=== PATIENT | male | born 1980 | race African-American/Black ===

== ENCOUNTER 2018-01-02 11:27 | Emergency (ER) | payer BC ==
[2018-01-02 12:30] LABS: BILIRUBIN,URINE NEGATIVE (NEG); CLARITY,URINE CLOUDY; COLOR,URINE YELLOW; GLUCOSE,URINE NEGATIVE (NEG); NITRITE,URINE NEGATIVE (NEG); PH,URINE 7.5; PROTEIN,URINE NEGATIVE (NEG-TRACE); UROBILINOGEN,URINE 0.2 mg/dL (0.2 mg/dL)
[2018-01-02 12:37] LABS: BACTERIA,URINE 0 /HPF (0-FEW); RBC,URINE 0 /HPF (0-2); SQUAMOUS EPITHELIAL CELL,UR OCC /LPF; WBC,URINE 0 /HPF (0-4)
[2018-01-02] MEDS: NAPROXEN 500 MG TABLET PO (13:02)
[2018-01-02] MEDS: HYDROcodone/APAP 5/325MG 1 TAB TABLET PO (13:02)
[2018-01-02] MEDS: diazePAM 5 MG TABLET PO (13:03)
== END 2018-01-02 14:40 | disposition home or self-care (01) ==
LOC: ER 11:27
DX: S32.009A Unspecified fracture of unspecified lumbar vertebra, initial encounter for closed fracture (principal); W01.0XXA Fall on same level from slipping, tripping and stumbling without subsequent striking against object, initial encounter; Y93.01 Activity, walking, marching and hiking; Y92.89 Other specified places as the place of occurrence of the external cause; Y99.8 Other external cause status
CPT/HCPCS: 72131; 81001; 99285-25

== ENCOUNTER 2018-05-21 13:14 | Emergency (ER) | payer BC ==
[~2018-05-21] VITALS: Ht 165.1 cm; Wt 65.8 kg
[~2018-05-21 13:14] MED LIST: DIAZ5TAB PO; HYDR-971 PO; METH4TAB2 PO; NAPR500T8 PO
[2018-05-21 13:35] VITALS: BP 132/68
[2018-05-21] MEDS ORDERED: HYDROcodone/APAP 5/325MG 1 TAB TABLET PO ONE (14:15)
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
[2018-05-21] MEDS ORDERED: HYDR-971 PO (14:52)
== END 2018-05-21 15:52 | disposition home or self-care (01) ==
LOC: ER 13:14
DX: S52.572A Other intraarticular fracture of lower end of left radius, initial encounter for closed fracture (principal); V19.9XXA Pedal cyclist (driver) (passenger) injured in unspecified traffic accident, initial encounter; Y93.89 Activity, other specified; Y92.410 Unspecified street and highway as the place of occurrence of the external cause; Y99.8 Other external cause status
CPT/HCPCS: 29125; 73110; 99284

== ENCOUNTER 2018-05-22 23:01 | Emergency (ER) | payer BC ==
[~2018-05-22] VITALS: Ht 162.6 cm; Wt 65.8 kg
[2018-05-23] MEDS ORDERED: oxyCODONE/APAP 5/325 1 TAB TABLET PO ONE (01:00)
[2018-05-23] MEDS ORDERED: OXYC-323 PO (02:27)
--- NOTE | 2018-05-23 02:27 | PHYS DOC ---
Past Medical History Past Medical History: No Pertinent History Past Surgical History: No Surgical History Alcohol Use: None Drug Use: None Adult General Chief Complaint Chief Complaint: WRIST PAIN HPI HPI Patient is a 37 year old [f__sex] who presents with [] Review of Systems Review of Systems Constitutional: Denies fever or chills [] Eyes: Denies change in visual acuity, redness, or eye pain [] HENT: Denies nasal congestion or sore throat [] Respiratory: Denies cough or shortness of breath [] Cardiovascular: No additional information not addressed in HPI [] GI: Denies abdominal pain, nausea, vomiting, bloody stools or diarrhea [] : Denies dysuria or hematuria [] Musculoskeletal: Denies back pain or joint pain [] Integument: Denies rash or skin lesions [] Neurologic: Denies headache, focal weakness or sensory changes [] Endocrine: Denies polyuria or polydipsia [] All other systems were reviewed and found to be within normal limits, except as documented in this note. Current Medications Current Medications Current Medications Medications (Trade) Dose Ordered Sig/Micha Start Time Stop Time Status Last Admin Dose Admin Fentanyl Citrate (Fentanyl 2ml Vial) 75 mcg 1X ONCE 05/23/18 02:30 05/23/18 02:31 UNV Oxycodone/ Acetaminophen (Percocet 5/325) 2 tab 1X ONCE 05/23/18 01:00 05/23/18 01:01 DC 05/23/18 01:06 2 TAB Allergies Allergies Allergies Coded Allergies Type Severity Reaction Last Updated Verified No Known Drug Allergies 01/02/18 No Physical Exam Physical Exam Constitutional: Well developed, well nourished, no acute distress, non-toxic appearance. [] HENT: Normocephalic, atraumatic, bilateral external ears normal, oropharynx moist, no oral exudates, nose normal. [] Eyes: PERRLA, EOMI, conjunctiva normal, no discharge. [] Neck: Normal range of motion, no tenderness, supple, no stridor. [] Cardiovascular:Heart rate regular rhythm, no murmur [] Lungs & Thorax: Bilateral breath sounds clear to auscultation [] Abdomen: Bowel sounds normal, soft, no tenderness, no masses, no pulsatile masses. [] Skin: Warm, dry, no erythema, no rash. [] Back: No tenderness, no CVA tenderness. [] Extremities: No tenderness, no cyanosis, no clubbing, ROM intact, no edema. [] Neurologic: Alert and oriented X 3, normal motor function, normal sensory function, no focal deficits noted. [] Psychologic: Affect normal, judgement normal, mood normal. [] Current Patient Data Vital Signs Vital Signs Date Time Temp Pulse Resp B/P (MAP) Pulse Ox O2 Delivery O2 Flow Rate FiO2 05/23/18 01:06 Room Air 05/23/18 00:27 97.7 72 18 170/82 (111) 99 97.7 EKG EKG [] Radiology/Procedures Radiology/Procedures [] Course & Med Decision Making Course & Med Decision Making Pertinent Labs and Imaging studies reviewed. (See chart for details) [] Dragon Disclaimer Dragon Disclaimer This electronic medical record was generated, in whole or in part, using a voice recognition dictation system. Departure Departure Impression: Primary Impression: Distal radius fracture, left Disposition: 01 HOME, SELF-CARE Condition: STABLE Referrals: NO PCP (PCP) SAMEERA EDWARDS MD Patient Instructions: Cast or Splint Care, [id number], Wrist Fracture Scripts Oxycodone/Apap 5-325 (PERCOCET 5-325 MG TABLET) 1 Each Tablet 1 TAB PO PRN Q6HRS PRN for PAIN, #14 TAB 0 Refills Prov: SEMAJ BARLOW DO 05/23/18 Problem Qualifiers Primary Impression: Distal radius fracture, left Encounter type: initial encounter Fracture type: closed Fracture morphology : Colles' Qualified Codes: S52.532A - Colles' fracture of left radius, initial encounter for closed fracture SEMAJ BARLOW DO May 23, 2018 02:27
[2018-05-23 02:45] VITALS: BP 154/77
[2018-05-23] MEDS ORDERED: fentaNYL PF VIAL 100 MCG/2 ML VIAL IM ONE (03:00)
--- NOTE | 2018-05-23 04:21 | RAD ---
Examination: 2 views of the left forearm HISTORY: History of pain, swelling, fracture COMPARISON: Chest radiograph from 05/21/2018 Findings/ impression: Comminuted mild displaced fracture of the distal radius with intra-articular extension. The alignment of the proximal radius and ulna grossly appears unremarkable. Electronically signed by: Deniz Johnson MD (05/23/2018 4:18 AM) [facility]
== END 2018-05-23 03:05 | disposition home or self-care (01) ==
LOC: ER 23:01
DX: S52.502A Unspecified fracture of the lower end of left radius, initial encounter for closed fracture (principal); X58.XXXA Exposure to other specified factors, initial encounter; Y93.89 Activity, other specified; Y92.89 Other specified places as the place of occurrence of the external cause; Y99.8 Other external cause status
CPT/HCPCS: 29105; 73090; 96372; 99284; J3010

== ENCOUNTER 2018-05-26 09:05 | Day surgery (SDC) | payer BC ==
[~2018-05-26] VITALS: Ht 162.6 cm; Wt 65.8 kg
[~2018-05-26 09:05] MED LIST changes: +IV RINGERS,LACTATED 1000ML 1,000 ML IV SCH; +LIDOCAINE 1% PF 2 ML VIAL. ID PRN; +ONDANSETRON PF 4 MG/2 ML VIAL. IV PRN; +OXYC-323 PO; +fentaNYL PF VIAL 100 MCG/2 ML VIAL IV PRN
[2018-05-26] MEDS ORDERED: BUPIVACAINE 0.5% 50 ML VIAL. ONE (10:18)
[2018-05-26] MEDS ORDERED: ROPIVacaine 0.5% PF 30 ML VIAL. ONE (10:18)
[2018-05-26] MEDS ORDERED: PROPOFOL 20 ML IV ONE (10:27)
[2018-05-26] MEDS ORDERED: DEXAMETHASONE SOD PHOS 20 MG/5 ML VIAL. ONE (10:27)
[2018-05-26] MEDS ORDERED: ONDANSETRON PF 4 MG/2 ML VIAL. ONE (10:27)
[2018-05-26] MEDS ORDERED: fentaNYL PF VIAL 100 MCG/2 ML VIAL ONE ×3 (10:28→13:03)
[2018-05-26] MEDS ORDERED: MIDAZOLAM HCL/PF 2 MG/2 ML VIAL. ONE (11:52)
[2018-05-26] MEDS ORDERED: hydrALAZINE 20 MG/ML VIAL. ONE (12:30)
--- NOTE | 2018-05-26 13:30 | DISCH ---
DISCHARGE INSTRUCTIONS Condition on Discharge Condition on Discharge: Stable Activity After Discharge Activity Instructions for Disc: Other, see below (fine motor use of left hand only, no grasping pushing pulling) Diet after Discharge Diet after Discharge: Regular Wound Incision Care Wound/Incision Care: Ice to area for comfort, Keep wound elevated, Do not change dressing Contacting the DRWanda after DC Call your doctor for: Concerns you may have Follow-Up Follow up with: Dean 10 days SAMEERA EDWARDS MD May 26, 2018 13:29
[2018-05-26] MEDS: PROCHLORPERAZINE 10 MG/2 ML VIAL. IV PRN ×2 (13:40→14:03)
[2018-05-26] MEDS: fentaNYL PF VIAL 100 MCG/2 ML VIAL IV PRN ×2 (13:41→14:03)
[2018-05-26] MEDS: MORPHINE SULFATE 2 MG/ML VIAL. IV PRN ×2 (14:04→14:17)
[2018-05-26] MEDS: HYDROmorphone 2 MG/ML VIAL IV PRN ×4 (14:17→15:02)
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
[2018-05-26] MEDS ORDERED: OXYC-327 PO (14:39)
[2018-05-26] MEDS ORDERED: oxyCODONE/APAP 7.5/325 1 TAB TABLET PO ONE (14:45)
[2018-05-26 14:50] VITALS: BP 187/89
== END 2018-05-26 15:48 | disposition home or self-care (01) ==
LOC: SURG 09:05
PROVIDERS: ATTEND Orthopaedic Surgery
DX: S52.572A Other intraarticular fracture of lower end of left radius, initial encounter for closed fracture (principal); F17.200 Nicotine dependence, unspecified, uncomplicated; Z79.899 Other long term (current) drug therapy; V19.88XA Pedal cyclist (driver) (passenger) injured in other specified transport accidents, initial encounter; Y93.89 Activity, other specified; Y92.89 Other specified places as the place of occurrence of the external cause; Y99.8 Other external cause status
CPT/HCPCS: 25609; 76000; A7015; C1713; J0360; J0780; J1100; J1170; J2250; J2270; J2405; J2704; J3010; J3490; J2795

== ENCOUNTER 2018-06-14 21:43 | Emergency (ER) | payer BC ==
[~2018-06-14] VITALS: Ht 165.1 cm; Wt 63.5 kg
[~2018-06-14 21:43] MED LIST changes: -IV RINGERS,LACTATED 1000ML 1,000 ML IV SCH; -LIDOCAINE 1% PF 2 ML VIAL. ID PRN; -ONDANSETRON PF 4 MG/2 ML VIAL. IV PRN; +OXYC-327 PO; -fentaNYL PF VIAL 100 MCG/2 ML VIAL IV PRN
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
[2018-06-14] MEDS ORDERED: NAPROXEN 500 MG TABLET PO ONE (22:30)
[2018-06-14] MEDS ORDERED: HYDROcodone/APAP 5/325MG 1 TAB TABLET PO ONE (22:30)
[2018-06-14] MEDS ORDERED: CYCLOBENZAPRINE 10 MG TABLET. PO ONE (22:30)
[2018-06-14] MEDS ORDERED: DICL50TA4 PO (23:26)
[2018-06-14] MEDS ORDERED: CYCL10TA2 PO (23:26)
[2018-06-14] MEDS ORDERED: OXYC-323 PO (23:26)
[2018-06-14 23:40] VITALS: BP 160/95
--- NOTE | 2018-06-15 07:58 | RAD ---
Right shoulder, 3 views, 06/14/2018: HISTORY: Fall, injury No fracture or dislocation is identified. The periarticular soft tissues are unremarkable. IMPRESSION: No acute bony abnormality is detected. Electronically signed by: Ahsan Bhagat MD (06/15/2018 7:55 AM) [facility]
== END 2018-06-14 23:40 | disposition home or self-care (01) ==
LOC: ER 21:43
DX: S43.101A Unspecified dislocation of right acromioclavicular joint, initial encounter (principal); V19.9XXA Pedal cyclist (driver) (passenger) injured in unspecified traffic accident, initial encounter; Y93.89 Activity, other specified; Y92.410 Unspecified street and highway as the place of occurrence of the external cause; Y99.8 Other external cause status
CPT/HCPCS: 73030; 99284

== ENCOUNTER → 2018-07-21 | Outpatient (CLI) | payer BC ==
[~2018-07-21] MED LIST changes: +CYCL10TA2 PO; +DICL50TA4 PO; +HYDR-3164 PO; -HYDR-971 PO
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
== END | disposition home or self-care (01) ==
LOC: MRI 10:13
PROVIDERS: ATTEND Orthopaedic Surgery
DX: M25.411 Effusion, right shoulder (principal); M25.711 Osteophyte, right shoulder; M75.121 Complete rotator cuff tear or rupture of right shoulder, not specified as traumatic
CPT/HCPCS: 73221

== ENCOUNTER 2019-12-21 08:26 | Emergency (ER) | payer BC ==
[~2019-12-21] VITALS: Ht 162.6 cm; Wt 63.0 kg
[~2019-12-21 08:26] MED LIST changes: -OXYC-323 PO; -OXYC-327 PO; +OXYC1TAB15 PO; +OXYC1TAB19 PO
[2019-12-21 08:35] VITALS: BP 147/90
--- NOTE | 2019-12-21 09:21 | RAD ---
CHEST AP ONLY History: Cough, shortness of air for a week Comparison: None. Findings: Single view of the chest is submitted. No lobar infiltrate is identified by radiograph. There is no dependent pleural fluid or pneumothorax. Heart size is considered within normal limits given technique. Impression: 1. No acute radiographic abnormality is identified. Electronically signed by: Yahir Woods MD (12/21/2019 9:18 AM) [id number]
[2019-12-21] MEDS ORDERED: AZIT250T PO (09:41)
--- NOTE | 2019-12-21 09:41 | PHYS DOC ---
Past Medical History Past Medical History: Hypertension Past Surgical History: Other Additional Past Surgical Histo: LEFT WRIST Smoking Status: Current Every Day Smoker Alcohol Use: None Drug Use: None Social History Narrative: [facility] General Adult EDM: Chief Complaint: COUGH HPI: HPI: Patient is a 39 year old male who presents to ER today for evaluation of productive cough for a week. Patient denies any fever or chills, no sore throat, no headache. Patient has history of hypertension and he is a smoker. He has no history of heart disease or diabetes. Patient had no known exposure to people who tested positive for COVID-19. Review of Systems: Review of Systems: Constitutional: Denies fever or chills. [] Eyes: Denies change in visual acuity. [] HENT: Denies nasal congestion or sore throat. [] Respiratory: Positive for cough, NO shortness of breath. [] Cardiovascular: Denies chest pain or edema. [] GI: Denies abdominal pain, nausea, vomiting, bloody stools or diarrhea. [] : Denies dysuria. [] Musculoskeletal: Denies back pain or joint pain. [] Integument: Denies rash. [] Neurologic: Denies headache, focal weakness or sensory changes. [] Endocrine: Denies polyuria or polydipsia. [] Lymphatic: Denies swollen glands. [] Psychiatric: Denies depression or anxiety. [] Heart Score: Risk Factors: Risk Factors: DM, Current or recent (<one month) smoker, HTN, HLP, family history of CAD, obesity. Risk Scores: Score 0 - 3: 2.5% MACE over next 6 weeks - Discharge Home Score 4 - 6: 20.3% MACE over next 6 weeks - Admit for Clinical Observation Score 7 - 10: 72.7% MACE over next 6 weeks - Early Invasive Strategies Allergies: Allergies: Allergies Coded Allergies Type Severity Reaction Last Updated Verified No Known Drug Allergies 05/26/18 No Physical Exam: PE: Constitutional: Well developed, well nourished, no acute distress, non-toxic appearance. [] HENT: Normocephalic, atraumatic, bilateral external ears normal, oropharynx moist, no oral exudates, nose normal. [] Eyes: PERRLA, EOMI, conjunctiva normal, no discharge. [] Neck: Normal range of motion, no tenderness, supple, no stridor. [] Cardiovascular:Heart rate regular rhythm, no murmur [] Lungs & Thorax: Bilateral breath sounds clear to auscultation [] Abdomen: Bowel sounds normal, soft, no tenderness, no masses, no pulsatile rosibel s. [] Skin: Warm, dry, no erythema, no rash. [] Back: No tenderness, no CVA tenderness. [] Extremities: No tenderness, no cyanosis, no clubbing, ROM intact, no edema. [] Neurologic: Alert and oriented X 3, normal motor function, normal sensory function, no focal deficits noted. [] Psychologic: Affect normal, judgement normal, mood normal. [] Current Patient Data: Vital Signs: Vital Signs Date Time Temp Pulse Resp B/P (MAP) Pulse Ox O2 Delivery O2 Flow Rate FiO2 12/21/19 08:35 98.4 76 14 147/90 (109) 98 Room Air 98.4 EKG: EKG: [] Radiology/Procedures: Radiology/Procedures: [][facility] [address] [place], [place] [id number] IMAGING REPORT Signed PATIENT: RISA QUINTERO ACCOUNT: [id number] : 1980 LOCATION: ER AGE: 39 SEX: M EXAM STATUS: PRE ER ORD. PHYSICIAN: LAYLA WELLS DO REASON: COUGH, SOA FOR A WEEK PROCEDURE: CHEST AP ONLY CHEST AP ONLY History: Cough, shortness of air for a week Comparison: None. Findings: Single view of the chest is submitted. No lobar infiltrate is identified by radiograph. There is no dependent pleural fluid or pneumothorax. Heart size is considered within normal limits given technique. Impression: 1. No acute radiographic abnormality is identified. Electronically signed by: Aram Walsh MD (12/21/2019 9:18 AM) [id number] DICTATED and SIGNED BY: ARAM WALSH MD DATE: 12/21/19917 Course & Med Decision Making: Course & Med Decision Making Pertinent Labs and Imaging studies reviewed. (See chart for details) COVID-19 CRITERIA: The patient was evaluated during the global COVID-19 pandemic, and that diagnosis was suspected/considered upon their initial presentation. Their evaluation, treatment and testing was consistent with current guidelines for patients who present with complaints or symptoms that may be related to COVID-19. Dragon Disclaimer: Vishnu Disclaimer: This electronic medical record was generated, in whole or in part, using a voice recognition dictation system. Departure Departure Impression: Primary Impression: Bronchitis Disposition: 01 HOME, SELF-CARE Condition: STABLE Referrals: NO PCP (PCP) FOLLOW UP WITH YOUR DOCTOR NEEDED Patient Instructions: Acute Bronchitis Additional Instructions: Thank you for visiting our Emergency Department. We appreciate you trusting us with your care. If any additional problems come up don't hesitate to return to visit us. Please follow up with your primary care provider so they can plan additional care if needed and know about the problem that you had. If symptoms worsen come back to the Emergency Department. Any concerning symptoms that start such as chest pain, shortness of air, weakness or numbness on one side of the body, running high fevers or any other concerning symptoms return to the ER. Scripts Azithromycin (ZITHROMAX) 250 Mg Tablet 1 PKG PO UD, #6 TAB Prov: LAYLA WELLS DO 12/21/19 COVID-19 Assessment: COVID-19 Patient Risks: Age 65 or older: No Sign of co-morbidity: No Exp to person + for COVID: No Exp to PUI: No Travel from affected area: No Lower respiratory symptoms: Yes Fever: No Other: No PPE Use: Full PPE with N95 mask or PAPR: Yes (N95 MASK, FULL PPE) LAYLA WELLS DO Dec 21, 2019 09:41
== END 2019-12-21 09:30 | disposition home or self-care (01) ==
LOC: ER 08:26
DX: J40 Bronchitis, not specified as acute or chronic (principal); I10 Essential (primary) hypertension; F17.200 Nicotine dependence, unspecified, uncomplicated
CPT/HCPCS: 71045; 99283